=== PATIENT | male | born 1975 | race Caucasian/White ===

== ENCOUNTER 2019-05-23 19:50 | Emergency (ER) | payer SELFPAY ==
[2019-05-23 20:09] VITALS: BP 121/75; PULSE 70; TEMP 98.5; BMI 27.1
--- NOTE | 2019-05-23 21:46 | PDOC ---
History of Present Illness - General Chief Complaint: Pain Stated Complaint: CHEST PAIN Time Seen by Provider: 05/23/19 20:03 - History of Present Illness Initial Comments: The pt is a 44M w/ no reported PMH who presents for evaluation of 1 week of hiccups. The pt endorses associated chest pain and abdominal pain since they have started. He endorses nausea w/o vomiting. Denies current fevers, ESCOBAR, vision changes, SOB, V/C/D, dysuria, hematuria, or changes in strength/sensation. Reports having it happen once before 1.5 years ago that self-resolved after 2-3 days. PMH: Denies PSH: Denies SH: Denies x3 05/23/19 22:13 Past History - Past Medical History Allergies/Adverse Reactions: Allergies Allergy/AdvReac Type Severity Reaction Status Date / Time No Known Allergies Allergy Verified 05/23/19 20:09 Home Medications: Ambulatory Orders Clindamycin [Cleocin -] 300 mg PO Q6HPO #28 capsule 11/05/12 No Home Medications 0 dose .ROUTE UTDICT 11/05/12 Oxycodone HCl/Acetaminophen [Percocet 5-325 mg Tablet] 1 - 2 combo PO Q4H PRN # 20 tablet 11/05/12 Chlorpromazine HCl 25 mg PO TID PRN #15 tablet 05/24/19 COPD: No - Psycho Social/Smoking Cessation Hx Smoking Status: No Smoking History: Never smoked Number of Cigarettes Smoked Daily: 0 Review of Systems - Review of Systems Able to Perform ROS?: Yes Comments:: GENERAL/CONSTITUTIONAL: No fever or chills. No weakness HEAD, EYES, EARS, NOSE AND THROAT: No change in vision. No change in hearing. No sore throat CARDIOVASCULAR: No shortness of breath RESPIRATORY: Denies cough, hemoptysis GASTROINTESTINAL: No vomiting, diarrhea or constipation GENITOURINARY: No dysuria, frequency, or change in urination MUSCULOSKELETAL: No joint or muscle swelling or pain. No neck or back pain SKIN: No rash NEUROLOGIC: No vertigo, loss of consciousness, or change in strength/sensation ENDOCRINE: No increased thirst. No abnormal weight change HEMATOLOGIC/LYMPHATIC: No anemia, easy bleeding, or history of blood clots ALLERGIC/IMMUNOLOGIC: No hives or skin allergy 05/23/19 21:46 *Physical Exam - Vital Signs Last Vital Signs Temp Pulse Resp BP Pulse Ox 98.5 F 70 18 121/75 98 05/23/19 20:06 05/23/19 20:06 05/23/19 20:06 05/23/19 20:06 05/23/19 20:06 - Physical Exam GENERAL: Awake, alert, and oriented to person/place/time, in no acute distress, frequent hiccups noted HEAD: No signs of trauma, normocephalic, atraumatic EYES: PERRLA, EOMI, sclera anicteric, conjunctiva clear ENT: Hearing grossly normal, nares patent, oropharynx clear without exudates. Moist mucosa LUNGS: No distress, speaks in full sentences, clear to auscultation bilaterally HEART: Regular rate and rhythm, normal S1 and S2, no murmurs appreciated, peripheral pulses normal and equal bilaterally ABDOMEN: Soft, mild diffuse TTP w/o rebound or guarding, normoactive bowel sounds EXTREMITIES: Normal inspection, Normal range of motion, no edema. No clubbing or cyanosis NEUROLOGICAL: Cranial nerves II through XII grossly intact. Normal speech, normal gait, no focal sensorimotor deficits SKIN: Warm, Dry 05/23/19 21:46 ED Treatment Course - LABORATORY CBC & Chemistry Diagram: 05/23/19 22:05 05/23/19 22:05 Medical Decision Making - Medical Decision Making The pt is a 44M w/ no reported PMH who presents for evaluation of 1 week of hiccups. ED Course ECG CMP, CBC, Trop I CT A&P to evaluate for diaphragmatic abscess 05/23/19 22:17 ECG w/ NSR HR 65; QTc 384; no axis deviation; no MIKO Labs unremarkable CT A&P w/o abscess or acute pathology, enlarged prostate noted Rx for chlorpromazine 25mg PO TID PRN for hiccups sent to pt's pharmacy Plan for D/C w/ PCP f/u Discharge instructions and return precautions given Patient in agreement and verbalized understanding Dispo: Home 05/24/19 01:41 Discharge - Discharge Information Problems reviewed: Yes Clinical Impression/Diagnosis: Hiccups Condition: Stable Disposition: HOME - Admission No - Additional Discharge Information Prescriptions: Chlorpromazine HCl 25 mg PO TID PRN #15 tablet PRN Reason: hiccups - Follow up/Referral Referrals: [facility] [place] [Provider Group] - Patient Discharge Instructions Patient Printed Discharge Instructions: DI for Hiccups Additional Instructions: You were seen in the Emergency Department for evaluation of hiccups. Your labs and imaging were unremarkable. Review the handout provided at discharge. Follow up with your primary care provider within a week. A prescription for Chlorpromazine 20mg every 6-8 hours as needed for your hiccups was sent to your pharmacy. Return to the Emergency Department if you develop fevers, chest pain, trouble breathing, worsening symptoms, or any new/concerning symptoms. Print Language: BARBADIAN - Post Discharge Activity Work/Back to School Note: Back to Work
--- NOTE | 2019-05-23 22:22 | PDOC ---
Documentation entered by Rafa Dietrich SCRIBE, acting as scribe for Anuja Elder MD. Anuja Elder MD: This documentation has been prepared by the Karlo staples Angel, SCRIBE, under my direction and personally reviewed by me in its entirety. I confirm that the documentation accurately reflects all work, treatment, procedures, and medical decision making performed by me. Attending Attestation - Resident Resident Name: Jemal Nina - ED Attending Attestation I have performed the following: I have examined & evaluated the patient, The case was reviewed & discussed with the resident, I agree w/resident's findings & plan, Exceptions are as noted - HPI HPI: 05/23/19 22:22 44-year-old male with no significant past medical history who is had hiccups for 1 week - Physicial Exam PE: 05/23/19 22:22 44-year-old male no acute distress presents with 1 week of hiccups Head normocephalic atraumatic Neck is supple Lungs are clear to auscultation bilaterally CVS regular rate and rhythm S1-S2 Abdomen soft, no rebound Skin warm and dry No flank pain Extremities no deformities, no edema Neuro alert and oriented x3, ambulatory, no gross focal neuro deficit 05/23/19 22:23 - Medical Decision Making 05/23/19 22:23 Will rule out a diaphragmatic abscess Imaging studies and labs to be done 05/24/19 01:41 CAT scan of abdomen pelvis did not show any diaphragmatic abscess, no acute surgical pathology noted. There was BPH No masses, no small bowel obstruction, no diverticulitis no appendicitis Impression hiccups( singultus ) plan d/c home on chlorpromazine 05/24/19 01:47
[2019-05-23 23:36] LABS: BASO % 0.8 % (0-2.0); EOS % 4.4 % (0-4.5); HEMATOCRIT 41.3 % (35.4-49); HEMOGLOBIN 14.2 GM/dL (11.7-16.9); LYMPH % 33.5 % (8-40); MCH 30.9 pg (25.7-33.7); MCHC 34.4 g/dl (32.0-35.9); MEAN CELL VOLUME 89.7 fl (80-96); MEAN PLT VOLUME 8.2 fl (7.5-11.1); NEUT % 50.3 % (42.8-82.8); PLATELET COUNT 238 K/MM3 (134-434); RDW 13.3 % (11.9-15.9); WHITE BLOOD COUNT 6.8 K/mm3 (4.0-10.0)
[2019-05-24 00:06] LABS: BLOOD UREA NITROGEN 16.6 mg/dL (7-18); CREATININE 0.8 mg/dL (0.55-1.3); GLUCOSE,RANDOM 104 mg/dL (74-106)
[2019-05-24 00:07] LABS: ALK PHOS 112 U/L (45-117); ANION GAP 6 MMOL/L (8-16); BILIRUBIN,TOTAL 0.7 mg/dL (0.2-1); CALCIUM 8.9 mg/dL (8.5-10.1); CHLORIDE 108 mmol/L (98-107); CO2 26 mmol/L (21-32); SGOT/AST 24 U/L (15-37); SGPT/ALT 46 U/L (13-61); SODIUM 140 mmol/L (136-145); TOT PROT 7.4 g/dl (6.4-8.2)
--- NOTE | 2019-05-24 17:07 | EKG ---
Test Reason : Blood Pressure : / mmHG Vent. Rate : 065 BPM Atrial Rate : 065 BPM P-R Int : 146 ms QRS Dur : 102 ms QT Int : 370 ms P-R-T Axes : 054 069 043 degrees QTc Int : 384 ms NORMAL SINUS RHYTHM INCOMPLETE RIGHT BUNDLE BRANCH BLOCK BORDERLINE ECG NO PREVIOUS ECGS AVAILABLE BASELINE ARTIFACT Confirmed by SHIRLEY GILLETTE, SUZANNE ([id number]) on 05/24/2019 5:07:31 PM Referred By: Confirmed By:SUZANNE WATSON MD
== END 2019-05-24 02:11 | disposition home or self-care (01) ==
LOC: JER 19:50
DX: R06.6 Hiccough (principal)
CPT/HCPCS: 36415; 74177-TC; 80053; 84484; 85025; 93005; 93010; 99285-25; Q9967